=== PATIENT | male | born 1960 | race Caucasian/White ===

== ENCOUNTER 2018-11-05 11:15 | Emergency (ER) | payer BC, OTHER ==
[~2018-11-05] VITALS: Ht 167.6 cm; Wt 95.0 kg
[2018-11-05 11:43] VITALS: Ht 167.6 cm; Wt 95.0 kg
[2018-11-05] MEDS ORDERED: ONDANSETRON 4 MG INJ IV STA (12:25)
[2018-11-05] MEDS ORDERED: SOD CHLORIDE 0.9% 1,000 ML IV STA (12:25)
[2018-11-05] MEDS ORDERED: HYDROmorphONE 1 MG/ML SYG IV STA (12:25)
[2018-11-05] MEDS ORDERED: HYDR-3980 PO (14:05)
[2018-11-05] MEDS ORDERED: CIPR500T4 PO (14:05)
[2018-11-05] MEDS ORDERED: METR500T PO (14:05)
--- NOTE | 2018-11-05 14:07 | ERD ---
ER Documentation Chief Complaint Chief Complaint Complains of abdominal pain x 3 days HPI This is a 58-year-old male with a history of diverticulitis feels like is having a flareup over the past 2-3 days. Pain located in the left lower quadrant and near the umbilicus as well is been a constant dull ache. No diarrhea but he has had constipation, no nausea vomiting no fever. He was seen at Dr. Jorge Luis [facility] office and sent here for evaluation CAT scan and IV fluids. Pain does not radiate no hematuria ROS All systems reviewed and are negative except as per history of present illness. Medications Home Meds Active Scripts Hydrocodone/Acetaminophen ([place] 10-325 Tablet) 1 Each Tablet, 1 TAB PO Q6H PRN for PAIN, #9 TAB Prov:LIZBETSUZANNEOS,NEFTALISTOLOS A. DO 11/05/18 Metronidazole* (Flagyl*) 500 Mg Tablet, 500 MG PO TID for 10 Days, TAB Prov:LEKKOS,APOSTOLOS A. DO 11/05/18 Ciprofloxacin Hcl* (Ciprofloxacin Hcl*) 500 Mg Tablet, 500 MG PO BID for 10 Days, TAB Prov:LEKKOS,APOSTOLOS A. DO 11/05/18 PMhx/Soc Hx Miscellaneous Medical Probl: Yes (dm high cholesterol ) Hx Alcohol Use: Yes (occasional ) Hx Substance Use: No Hx Tobacco Use: No Smoking Status: Never smoker FmHx Family History: No coronary disease Physical Exam Vitals Vital Signs Date Temp Pulse Resp B/P (MAP) Pulse Ox O2 O2 Flow FiO2 Time Delivery Rate 11/05/18 98.7 68 20 132/71 96 11:43 (91) Physical Exam Const: Well-developed, well-nourished Head: Atraumatic, normocephalic Eyes: Normal Conjunctiva, PERRLA, EOMI, normal sclera, no nystagmus ENT: Normal External Ears, Nose and Mouth, moist mucus membranes. Neck: Full range of motion. No meningismus, no lymphadenopathy. Resp: Clear to auscultation bilaterally, no wheezing, rhonchi, rales Cardio: Regular rate and rhythm, no murmurs, S1 S2 present Abd: Soft, left lower quadrant tenderness mild to moderate non distended. Normal bowel sounds, no guarding or rebound, no pulsitile abdominal masses or bruits Skin: No petechiae or rashes, no ecchymosis , no maculopapular rash Back: No midline or flank tenderness Ext: No cyanosis, or edema, FROM x 4, normal inspection, neurovascularly intact x 4 Neur: Awake and alert, STR 5/5 x 4, sensation intact x 4, no focal findings, cerebellum intact Psych: Normal Mood and Affect Result Diagram: 11/05/18 1230 11/05/18 1230 Results 24 hrs Laboratory Tests Test 11/05/18 12:30 White Blood Count 9.4 10^3/ul Red Blood Count 4.88 10^6/ul Hemoglobin 14.7 g/dl Hematocrit 43.2 % Mean Corpuscular Volume 88.5 fl Mean Corpuscular Hemoglobin 30.1 pg Mean Corpuscular Hemoglobin Concent 34.0 g/dl Red Cell Distribution Width 14.4 % Platelet Count 225 10^3/UL Mean Platelet Volume 10.6 fl Immature Granulocytes % 0.200 % Neutrophils % 74.4 % Lymphocytes % 14.5 % Monocytes % 8.7 % Eosinophils % 1.8 % Basophils % 0.4 % Nucleated Red Blood Cells % 0.0 /100WBC Immature Granulocytes # 0.020 10^3/ul Neutrophils # 7.0 10^3/ul Lymphocytes # 1.4 10^3/ul Monocytes # 0.8 10^3/ul Eosinophils # 0.2 10^3/ul Basophils # 0.0 10^3/ul Nucleated Red Blood Cells # 0.0 10^3/ul Urine Color YELLOW Urine Clarity CLEAR Urine pH 5.0 Urine Specific [place] 1.035 Urine Ketones TRACE mg/dL Urine Nitrite NEGATIVE mg/dL Urine Bilirubin NEGATIVE mg/dL Urine Urobilinogen NEGATIVE mg/dL Urine Leukocyte Esterase NEGATIVE Mercedes/ul Urine Hemoglobin NEGATIVE mg/dL Urine Glucose 3+ mg/dL Urine Total Protein NEGATIVE mg/dl Sodium Level 145 mmol/L Potassium Level 3.8 mmol/L Chloride Level 106 mmol/L Carbon Dioxide Level 27 mmol/L Anion Gap 12 Blood Urea Nitrogen 9 mg/dl Creatinine 0.57 mg/dl Est Glomerular Filtrat Rate mL/min > 60 mL/min Glucose Level 112 mg/dl Calcium Level 9.5 mg/dl Total Bilirubin 0.8 mg/dl Direct Bilirubin 0.00 mg/dl Indirect Bilirubin 0.8 mg/dl Aspartate Amino Transf (AST/SGOT) 18 IU/L Alanine Aminotransferase (ALT/SGPT) 24 IU/L Alkaline Phosphatase 59 IU/L Total Protein 7.6 g/dl Albumin 4.4 g/dl Globulin 3.20 g/dl Albumin/Globulin Ratio 1.37 Lipase 253 U/L Current Medications Medications Dose Sig/Shani Start Time Status Last (Trade) Ordered Route PRN Stop Time Admin Dose Reason Admin Sodium 1,000 ml @ Q1H STAT 11/05/18 DC 11/05/18 Chloride 1,000 mls/hr IV 12:25 12:25 11/05/18 13:24 1 mg ONCE STAT 11/05/18 DC 11/05/18 Hydromorphone IV 12:25 12:25 HCl 11/05/18 12:26 (Dilaudid) Ondansetron 4 mg ONCE STAT 11/05/18 DC 11/05/18 HCl (Zofran IV 12:25 12:25 Inj) 11/05/18 12:26 Ertapenem 1 100 ml @ ONCE ONCE 11/05/18 gm/ Sodium 200 mls/hr IVPB 14:30 Chloride 11/05/18 14:59 Procedures/MDM MR #: [id number] DOS: 11/05/18 1225 Ordering MD: ANDER ZARAGOZA DO Location: E/R Room/Bed: PROCEDURE: CT ABDOMEN AND PELVIS WITHOUT CONTRAST. CLINICAL INDICATION: Left lower quadrant abdominal pain TECHNIQUE: CT scan of the abdomen and pelvis without contrast was performed on a multidetector high-resolution CT scanner. The patient was scanned without intravenous contrast. Coronal and sagittal reformatted images were obtained from the axial source images. Images were reviewed on a high-resolution PACS workstation. The total exam CTDI equals 90.7 mGy and the total exam DLP equals 1360 mGy-cm. One or more of the following dose reduction techniques were used: Automated exposure control. Adjustment of the mA and/or kV according to patient size. Use of iterative reconstruction technique. DICOM images are available COMPARISON: None FINDINGS: CT abdomen: The lung bases are clear. The heart size is enlarged. There is no significant pericardial effusion. Hepatic morphology is within normal limits. No gross contour deforming masses. The gallbladder is identified, containing gallstones. No evidence of intrahepatic or extrahepatic biliary dilatation. The spleen and pancreas are within normal limits. Both adrenal glands are within normal limits. Both kidneys are in normal anatomic position. There is a punctate 3 mm non- obstructing stone within the mid pole right kidney. There is a punctate 2.6 mm non-obstructing stone within the mid pole left kidney. No evidence of o bstructive uropathy within both kidneys. The visualized GI tract demonstrates normal caliber loops of small and large bowel. No evidence of bowel obstruction. Stool filled loops of large bowel sugge stive of constipation. There is a fat-containing umbilical hernia. Atherosclerotic calcification of the aorta is identified. Several retroperitoneal lymph nodes are noted. CT pelvis: Acute diverticulitis of the proximal sigmoid colon and distal descending colon is noted with adjacent fatty stranding and several adjacent mesenteric lymph nodes. No evidence of perforation or focal fluid collections. The prostate gland is enlarged measuring up to 5.4 cm. The bladder wall thickening with adjacent fat stranding. No significant free fluid. No significant pelvic lymphadenopathy. The visualized osseous structures demonstrate multilevel degenerative disc disease of the spine. Endplate sclerotic changes are noted at the level of T10- T11. IMPRESSION: 1. ACUTE DIVERTICULITIS OF THE PROXIMAL SIGMOID COLON AND DISTAL DESCENDING COLON WITH ADJACENT FATTY STRANDING AND SEVERAL ADJACENT MESENTERIC LYMPH NODES. NO EVIDENCE OF PERFORATION OR FOCAL FLUID COLLECTIONS. 2. Mild prostamegaly. 3. Cholelithiasis. 4. Prostamegaly. Recommend correlation with PSA levels. 5. There is thickening of the carrillo of the bladder. Cannot exclude cystitis. 6. Fat-containing umbilical hernia. 7. No evidence of bowel obstruction. Stool filled loops of large bowel suggestive of constipation. RPTAT: AAPP Physician Neal Date Time Electronically viewed and signed by Physician Neal on 11/05/2018 13:43 JL/ CC: ANDER ZARAGOZA DO [id number] Patient's labs look unremarkable. He does have acute diverticulitis I will give him a dose of intravenous Invanz here and discharged home with Cipro Flagyl and [place] Patient feels much better at this time, and vital signs are normal, symptoms have improved. I did give strict instructions to return to the ED if symptoms continue or worsen, patient will otherwise follow-up with primary care physician. Patient understood instructions and agreed to plan. Disclaimer: Inadvertent spelling and grammatical errors are likely due to EHR/dictation software use and do not reflect on the overall quality of patient care. Also, please note that the electronic time recorded on this note does not necessarily reflect the actual time of the patient encounter. Departure Diagnosis: Primary Impression: Diverticulitis Condition: Stable Patient Instructions: Diverticulitis ANDER ZARAGOZA DO Nov 05, 2018 14:07
[2018-11-05] MEDS ORDERED: ERTAPENEM SODIUM 1 GM in SOD CHLORIDE 0.9% 100 ML IVPB ONE (14:30)
[2018-11-05 15:41] VITALS: BP 120/73; PULSE 57; RESP 18
== END 2018-11-05 16:07 | disposition home or self-care (01) ==
LOC: E/R 11:15
DX: K57.32 Diverticulitis of large intestine without perforation or abscess without bleeding (principal)
CPT/HCPCS: 36415; 74176; 80053; 81003; 83690; 85025; 96374; 96375; 99285; J1170; J1335; J2405; J7030